=== PATIENT | female | born 1965 | race Caucasian/White ===

== ENCOUNTER 2019-01-05 18:17 | Inpatient (IN) | payer OTHER ==
--- NOTE | 2019-01-05 18:53 | ED ---
General Adult HPI - General Chief complaint: Extremity Injury, Lower Stated complaint: Ankle injury Time Seen by Provider: 01/05/19 18:32 Source: patient, family, RN notes reviewed Mode of arrival: wheelchair Limitations: no limitations - History of Present Illness Initial comments: Patient is a pleasant 53-year-old female presenting to the emergency department following right ankle injury. Patient states injury occurred around 11:30 last night. Patient tripped over her dog. Patient did see orthopedics today who did some manipulation to the ankle and did place splint. They did numb up the ankle prior to this procedure. Patient states discomfort is minimal at this time. Patient states she was told she would need a computed tomography scan and probable surgery tonight. Patient denies any other area of injury or concern. - Related Data Home Medications Medication Instructions Recorded Confirmed Fexofenadine HCl [Purvi Allergy] 180 mg PO DAILY 01/05/19 01/05/19 Ibuprofen [Advil] 400 mg PO Q8H 01/05/19 01/05/19 Allergies Allergy/AdvReac Type Severity Reaction Status Date / Time Fish Containing Products Allergy Itching Verified 01/05/19 18:51 [Fish] pistachio nut Allergy Swelling Verified 01/05/19 18:51 tetracycline AdvReac Nausea & Verified 01/05/19 18:51 Vomiting & Diarrhea Review of Systems ROS Statement: Those systems with pertinent positive or pertinent negative responses have been documented in the HPI. ROS Other: All systems not noted in ROS Statement are negative. Constitutional: Denies: fever Eyes: Denies: eye pain ENT: Denies: ear pain Respiratory: Denies: cough Cardiovascular: Denies: chest pain Endocrine: Denies: fatigue Gastrointestinal: Denies: abdominal pain Genitourinary: Denies: dysuria Musculoskeletal: Denies: back pain Skin: Denies: rash Neurological: Denies: weakness Past Medical History Past Medical History: No Reported History History of Any Multi-Drug Resistant Organisms: None Reported Past Surgical History: Section Past Psychological History: No Psychological Hx Reported Smoking Status: Current every day smoker Past Alcohol Use History: None Reported Past Drug Use History: None Reported General Exam Limitations: no limitations General appearance: alert, in no apparent distress Head exam: Present: atraumatic Eye exam: Present: normal appearance Neck exam: Present: normal inspection Respiratory exam: Present: normal lung sounds bilaterally Cardiovascular Exam: Present: regular rate, normal rhythm Extremities exam: Present: other (Right lower leg with OCL splint. Distally toes have sensation and movement intact. Cap refill less than 2 seconds.) Neurological exam: Present: alert Psychiatric exam: Present: normal affect, normal mood Skin exam: Present: normal color Course Vital Signs 01/05/19 18:20 Temperature 98.4 F Pulse Rate 78 Respiratory 18 Rate Blood Pressure 151/87 O2 Sat by Pulse 95 Oximetry - Reevaluation(s) Reevaluation #1: 01/05/19 18:52 Patient refuses pain medication at this time Medical Decision Making - Medical Decision Making Patient is currently being taken to the OR. Disposition Clinical Impression: Trimalleolar fracture of ankle, closed Disposition: ADMITTED IP TO THIS HOSP Is patient prescribed a controlled substance at d/c from ED?: No Referrals: Lakshmi Rodríguez MD [Primary Care Provider] - 1-2 days Decision Time: 20:02
--- NOTE | 2019-01-05 19:31 | P.HPOR ---
History of Present Illness H&P Date: 01/05/19 The patient is a very pleasant 53-year-old female with a medical history significant for smoking one half pack cigarettes a day who sustained an injury to her right ankle last night when she tripped over her puppy. She had significant pain and deformity in her ankle but decided not to go to the [facility] room. They wrapped her ankle and a towel and called our office this morning. She was seen in our office this afternoon and was found to have a fracture dislocation of the ankle. There is tenting of the skin over the medial aspect of the ankle with skin at risk. An intra-articular lidocaine block was performed followed by 2 attempts at closed reduction and splinting. Postreduction x-rays showed persistent subluxation of the ankle. She only had moderate swelling throughout the ankle and due to her history of cigarette smoking and skin at risk over the medial ankle I sent her to the emergency department for a computed tomography scan and definitive fixation this evening. Past Medical History Past Medical History: No Reported History History of Any Multi-Drug Resistant Organisms: None Reported Past Surgical History: Section Past Psychological History: No Psychological Hx Reported Smoking Status: Current every day smoker Past Alcohol Use History: None Reported Past Drug Use History: None Reported Medications and Allergies Home Medications Medication Instructions Recorded Confirmed Type Fexofenadine HCl [Purvi Allergy] 180 mg PO DAILY 01/05/19 01/05/19 History Ibuprofen [Advil] 400 mg PO Q8H 01/05/19 01/05/19 History Allergies Allergy/AdvReac Type Severity Reaction Status Date / Time Fish Containing Products Allergy Itching Verified 01/05/19 18:51 [Fish] pistachio nut Allergy Swelling Verified 01/05/19 18:51 tetracycline AdvReac Nausea & Verified 01/05/19 18:51 Vomiting & Diarrhea Physical Examination The patient is in no apparent distress and is alert and oriented. She is able to easily answer questions. Her head is normocephalic and atraumatic. She demonstrates nonlabored breathing with symmetric chest expansion. On examination of the right lower extremity there is a splint in place which was taken down. There is skin at risk with tenting over the medial aspect of the ankle. There otherwise no open wounds or fracture blisters. There is moderate swelling but the skin does not appear tense. Sensation is intact to light touch in the distribution of the superficial peroneal nerve, deep peroneal nerve, and tibial nerves. There is minimal pain with passive range of motion of the toes. The dorsalis pedis pulse is palpable. Results X-rays from our office show a trimalleolar ankle fracture dislocation Assessment and Plan (1) Trimalleolar fracture of ankle, closed Current Visit: Yes Status: Acute Code(s): S82.853A - DISPLACED TRIMALLEOLAR FRACTURE OF UNSP LOWER LEG, INIT SNOMED Code(s): 4914276 Plan: The patient had 2 attempts at closed reduction and splinting in the office. She had persistent subluxation of the ankle and skin at risk medially. Due to her cigarette smoking and skin at risk I recommended urgent operative fixation. The patient and her understood the emergency department an open wound. They were sent over to the emergency department for a computed tomography scan and then plans for definitive surgery later this evening. She is remain nothing by mouth. They're well aware of the potential risks and complications of surgery. They also understand that she is at a much higher risk of having a complication due to her cigarette smoking.
[2019-01-05] MEDS ORDERED: NALOXONE 0.4 MG/ML 1 ML VIAL IV PRN (20:02)
[2019-01-05] MEDS ORDERED: HYDROmorphone 1 MG/ML 1 ML SYRINGE IVP PRN (20:02)
[2019-01-05] MEDS ORDERED: HYDROmorphone 0.5 MG/0.5 ML SYRINGE IVP PRN ×3 (20:02→22:25)
[2019-01-05 20:08] LABS: Basophils % (A) 0 %; Eosinophils # (A) 0.7 k/uL (0-0.7); Eosinophils % (A) 5 %; HGB 14.3 gm/dL (11.4-16.0); Lymphocytes # (A) 2.8 k/uL (1.0-4.8); Lymphocytes % (A) 21 %; MCH 32.5 pg (25.0-35.0); MCHC 31.8 g/dL (31.0-37.0); MCV 102.2 fL (80.0-100.0); Macrocytosis Slight; Mean Platelet Volume 7.2; Monocytes # (A) 0.5 k/uL (0-1.0); Monocytes % (A) 3 %; Neutrophils # (A) 9.2 k/uL (1.3-7.7); Neutrophils % (A) 68 %; Platelet Count 273 k/uL (150-450); RBC 4.41 m/uL (3.80-5.40); RDW 12.6 % (11.5-15.5); WBC 13.5 k/uL (3.8-10.6)
[2019-01-05] MEDS ORDERED: SODIUM CHLORIDE 0.9% 1,000 ML IV SCH (20:15)
[2019-01-05 20:17] LABS: INR 0.9 (<1.2); Partial Thromboplastin Time 23.6 sec (22.0-30.0); Prothrombin Time 9.5 sec (9.0-12.0)
[2019-01-05] MEDS ORDERED: ROPIVACAINE 5 MG/ML 30 ML VIAL ONE (20:17)
[2019-01-05] MEDS ORDERED: SUCCINYLCHOLINE CHLORIDE 100 MG/5 ML SYR IV ONE (20:17)
[2019-01-05] MEDS ORDERED: fentaNYL (PF) 50 MCG/ML 2 ML AMP ONE (20:17)
[2019-01-05] MEDS ORDERED: LIDOCAINE 1% INJ 10MG/ML (20 ML MDV) ONE (20:17)
[2019-01-05] MEDS ORDERED: MIDAZOLAM 2 MG/2 ML VIAL ONE (20:17)
[2019-01-05] MEDS ORDERED: PROPOFOL 10 MG/ML 50 ML VIAL IV ONE (20:17)
[2019-01-05] MEDS ORDERED: PHENYLEPHRINE-0.9% NACL SYG 1 MG/10 ML SYRINGE ONE (20:17)
[2019-01-05] MEDS ORDERED: HYDROmorphone (PF) 1 MG/ML ONE (20:17)
[2019-01-05] MEDS ORDERED: GLYCOPYRROLATE 0.2 MG/ML 2 ML VIAL ONE (20:17)
[2019-01-05 20:18] LABS: ALT 34 U/L (9-52); AST 27 U/L (14-36); African American GFR (CKD) >90 (>60 ml/min/1.73 sqM); Albumin 4.8 g/dL (3.5-5.0); Alkaline Phosphatase 99 U/L (38-126); Anion Gap 12 mmol/L; Blood Urea Nitrogen 15 mg/dL (7-17); Calcium 9.6 mg/dL (8.4-10.2); Carbon Dioxide 26 mmol/L (22-30); Chloride 103 mmol/L (98-107); Glucose 105 mg/dL (74-99); Potassium 4.3 mmol/L (3.5-5.1); Sodium 141 mmol/L (137-145); Total Bilirubin 0.7 mg/dL (0.2-1.3); Total Protein 7.7 g/dL (6.3-8.2)
--- NOTE | 2019-01-05 20:20 | CT ---
CT scan of the right ankle. History fracture. Comparison none. TECHNIQUE: Multiple axial sections were obtained from the mid tibia to the bottom of the foot without contrast. FINDINGS: There is transverse fracture of the medial malleolus. There is 8 mm lateral displacement. There is 8 mm lateral displacement of the talus. There is oblique fracture of the distal fibula with separation of the fragments up to 5 mm. There is a comminuted 2 cm chip fracture of the posterior malleolus. The re is posterior displacement of the talus of 1 cm. The calcaneus is intact. The talus is intact. Subt alar joint is intact. There is a mild posterior dislocation of the talus.. IMPRESSION: There is a posterior trimalleolar comminuted fracture dislocation of the ankle. Displacement up to 1 cm. Small plantar calcaneal spur.
[2019-01-05] MEDS ORDERED: LACTATED RINGERS 1,000 ML IV ONE ×2 (20:28→21:55)
[2019-01-05] MEDS ORDERED: SODIUM CHLORIDE 0.9% 50 ML with ceFAZolin 2,000 MG IV ONE ×2 (20:50)
[2019-01-05] MEDS ORDERED: HYDROcodone/APAP 5-325MG 1 EACH TAB PO PRN ×2 (22:25)
[2019-01-05] MEDS ORDERED: hydrOXYzine PAMOATE 25 MG CAP PO PRN (22:25)
[2019-01-05] MEDS ORDERED: SENNOSIDES-DOCUSATE SODIUM 1 EACH TAB PO PRN (22:25)
--- NOTE | 2019-01-05 22:33 | P.OP ---
Date of Procedure: 01/05/19 Preoperative Diagnosis: 1. Right trimalleolar ankle fracture dislocation 2. Current every day cigarette smoker Postoperative Diagnosis: Same Procedure(s) Performed: 1. Open reduction and internal fixation of right lateral and medial malleolus fracture, nonoperative management posterior malleolus fracture 2. Manual application of joint stress for radiography by physician, right ankle 3. Application of short-leg splint by physician, right ankle Anesthesia: JOSE ALFREDO, regional Surgeon: Macario Pascal Garden Equipment Mechanic #1: Sandip Fair Estimated Blood Loss (ml): 15 IV fluids (ml): 1,200 Pathology: none sent Condition: stable Disposition: PACU Indications for Procedure: The patient is very pleasant 53-year-old female with a medical history significant for cigarette smoking who presented to my office today with a fractured and dislocated ankle. The patient injured her right ankle yesterday when walking her new puppy. She wrapped her leg in a towel and waited overnight before presenting to our office today. She was found to have skin at risk over the medial malleolus. 2 attempts were made in the office to reduce the ankle but there is persistent lateral subluxation of the talus. I recommended going to the operating room for formal open reduction internal fixation due to the skin at risk medially. There is only moderate swelling so I felt safe performing formal open reduction internal fixation. I discussed with the patient and her the potential risks and Occasions of surgery including but not limited to risk of anesthesia, superficial infection, deep infection, delayed wound healing, superficial wound necrosis, nonunion the fracture site, malunion of the fracture site, postoperative hardware failure, post rheumatic arthritis, DVT, PE, other medical complications, and inability to regain prein jury level of function, generalized a satisfactory surgical outcome, and possibly loss of life or limb. The patient and her voiced understanding of these potential complications and also acknowledged the risk for other less common complications. They also understand that she is a higher risk having a complication due to her cigarette smoking. Description of Procedure: The patient is identified in preoperative holding and the correct right ankle was marked my initials. I reviewed the consent form with the patient and her family. All their questions were answered. The patient was then brought back to the operating room by anesthesia. She was positioned on the OR table where a general anesthetic and preoperative antibiotics were given. A tourniquet was applied to the proximal aspect of the right leg. A bump was placed in the right buttock into a rotate the leg to neutral. A ramp was placed under the right leg elevating the leg. All bony prominences were well-padded. The right leg was then prepped and draped in standard sterile fashion. A timeout was then performed identifying the correct patient, operative extremity, and procedure. The patient's leg was elevated, exsanguinated with an Esmarch bandage, and the tourniquet was inflated to 250 mmHg. I began by outlining a straight lateral incision to the distal fibula. Skin incision with a scalpel and dissection was carried down carefully to the subcu tissues tissue with tenotomy scissors. The fascia over the peroneal muscles proximally and the periosteum over the fibula distally was sharply incised. The fracture was identified and carefully debrided. The reduction was performed and held with a uvsxy-yf-bqzxu reduction clamp. The spike of the distal fragment keyed in anatomically into the proximal shaft. The reduction was verified with fluoroscopy. An anterior to posterior 2.7 mm lag screw was placed across the fracture generating excellent compression. A precontoured distal fibular plate was placed along the lateral aspect of the fibula. Once its position was verified with fluoroscopy and nonlocking 3.5 mm screw was placed just proximal to the fracture bringing the plate down to bone. An additional 2 nonlocking 3.5 malleolar screws were placed proximal to the fracture securing the plate to bone. Attention was then turned distally. A nonlocking 3.5 mm screw was placed through of the distal cluster of holes to bring the plate down to bone. I then filled the remaining cluster of holes with locking 3.5 mm screws. The nonlocking 3.5 mm screw was exchanged for a locking screw. Attention was then turned to the medial malleolus. A longitudinal incision was made over the medial malleolus dissection was carried down to subcutaneous tissue. The fracture site was immediately identified and hematoma was debrided from the fracture site. The joint was irrigated. A 2.0 mm drill bit was used to drill unicortical perforation just proximal to the fracture. A seism-yw-wcpkh reduction clamp was then used with 1 emma in this drill hole the second emma on the anterior aspect of the medial malleolus fragment. The fracture fragment was gently teased into place and the clamp was tightened. Clinically the fracture appeared anatomically reduced. Fluoroscopy was used to verify reduction. Due to the size of the fragment was only able to accommodate a single 3.5 mm screw. A solid fully threaded 2.5 mm screw was placed generating excellent compression across the fracture fragment. As the screw was tightened a K wire was placed to prevent rotation of the fragment. Following full seating of the screw the reduction clamp and K wire were removed. Final fluoroscopic images were taken including a mortise view, manual external rotation stress x-ray, and lateral view. The fibula appeared to be out to length and the talus was anatomically reduced within the ankle mortise. On the lateral view there was no posterior subluxation of the talus. On the manual external rotation stress x-ray there is no widening of the medial clear space or incisura. I interpreted this as a stable syndesmosis not requiring syndesmotic fixation. The wound was then copiously irrigated and closed in layers. I verified that all instrument, sponge, and sharp counts were correct. A sterile dressing consisting of brown quarter inch stretchy Steri-Strips, parents with Adaptic, 4 x 4 were applied. The drapes were taken off and a well-padded bulky Ferreira splint was placed with the ankle in neutral. The patient was awoken from her anesthetic, transferred to a gurney, and brought to recovery having tolerated procedure well. [facility] PAC was required skilled leasing assistant for patient positioning, surgical exposure, placement of hardware, closure of wound, and application of splint. Plan: The patient is going to be admitted overnight for 2 doses of postoperative antibiotics and pain control. She can make strictly nonweightbearing on her right leg. Physical therapy for gait and crutch training. She can discharge home tomorrow when her pain is controlled and she passes physical therapy.
[2019-01-05] MEDS ORDERED: ROPIVACAINE 5 MG/ML 30 ML VIAL MISCELLANE ONE (22:36)
--- NOTE | 2019-01-05 23:13 | P.ANPRN ---
Procedure Note - Anesthesia - Nerve Block Performed Right Adductor Canal Single Time Out Performed: Yes Date of Procedure: 01/05/19 Procedure Start Time: 22:58 Procedure Stop Time: 23:05 Location of Patient Procedure: PACU Indication: Acute Post-Operative Pain, Requested by physician Specifically requested for management of pain by DrYani: Macario Pascal Sedation Type: Sedate with meaningful contact maintained Preparation: Sterile Prep Position: Supine Needle Types: Facet Needle Gauge: 20 Technique: Ultrasound Injectate: 0.5% Ropivacaine (see comment for volume) (15 ml) Blood Aspirated: No Pain Paresthesia on Injection Noted: No Resistance on Injection: Normal Events: Uneventful and Well Tolerated
--- NOTE | 2019-01-05 23:14 | P.ANPRN ---
Procedure Note - Anesthesia - Nerve Block Performed Right Popliteal Single Time Out Performed: Yes Date of Procedure: 01/05/19 Procedure Start Time: 22:36 Procedure Stop Time: 22:56 Location of Patient Procedure: PACU Indication: Acute Post-Operative Pain, Requested by physician Specifically requested for management of pain by DrYani: Macario Pascal Sedation Type: Sedate with meaningful contact maintained Preparation: Sterile Prep Position: Left Lateral Catheter: None Needle Types: Facet Needle Gauge: 20 Technique: Ultrasound Injectate: 0.5% Ropivacaine (see comment for volume) (15 ml) Blood Aspirated: No Pain Paresthesia on Injection Noted: No Resistance on Injection: Normal Events: Uneventful and Well Tolerated
[2019-01-05] MEDS: ceFAZolin IN SWFI 2 GM/20 ML SYRINGE IVP SCH (23:58)
--- NOTE | 2019-01-06 00:18 | XR ---
EXAMINATION TYPE: XR ankle limited RT, [place] guidance operating room DATE OF EXAM: 01/05/2019 COMPARISON: NONE HISTORY: 52 year-old female right ankle ORIF FINDINGS: 4 intraoperative views during bimalleolar ankle fixation. The posterior malleolus fracture described in the patient's history is obscured by the fibular fixation sideplate. FLUOROSCOPY Fluoroscopy time of 52 seconds was used during right ankle ORIF of trimalleolar fractures. 4 image/s document/s the procedure. IMPRESSION: Intraoperative fluoroscopy as above.
[2019-01-06] MEDS: ONDANSETRON 4 MG/2 ML VIAL IVP PRN ×2 (00:38→08:17)
[2019-01-06] MEDS: HYDROmorphone 1 MG/ML 1 ML SYRINGE IVP PRN ×6 (01:16→20:45)
[2019-01-06] MEDS: LACTATED RINGERS 1,000 ML IV SCH ×3 (03:09→21:41)
[2019-01-06 08:16] LABS: Basophils # (A) 0.1 k/uL (0-0.2); Basophils % (A) 1 %; Eosinophils # (A) 0.6 k/uL (0-0.7); Eosinophils % (A) 4 %; HCT 36.7 % (34.0-46.0); HGB 11.9 gm/dL (11.4-16.0); Lymphocytes # (A) 2.9 k/uL (1.0-4.8); Lymphocytes % (A) 21 %; MCH 33.2 pg (25.0-35.0); MCHC 32.4 g/dL (31.0-37.0); MCV 102.6 fL (80.0-100.0); Macrocytosis Slight; Mean Platelet Volume 7.7; Monocytes # (A) 0.5 k/uL (0-1.0); Monocytes % (A) 4 %; Neutrophils # (A) 9.5 k/uL (1.3-7.7); Neutrophils % (A) 69 %; Platelet Count 225 k/uL (150-450); RBC 3.58 m/uL (3.80-5.40); RDW 13.8 % (11.5-15.5); WBC 13.9 k/uL (3.8-10.6)
[2019-01-06] MEDS: ENOXAPARIN 40 MG/0.4 ML SYRINGE SQ SCH (08:19)
--- NOTE | 2019-01-06 08:43 | P.PN ---
Subjective Progress Note Date: 01/06/19 This patient is a 53-year-old female with a past medical history significant for cigarette smoking who presented to Dr. Pascal's office on 01/05/19 with a right trimalleolar ankle fracture dislocation. Two attempts were made to reduce and splint the ankle in the office, although there was persistent lateral subluxation of the talus. It was recommended to undergo a formal open reduction internal fixation due to skin at risk at the medial malleolus. The patient underwent an open reduction internal fixation right lateral and medial malleolus fracture, with nonoperative management of the posterior malleolus fracture on 01/05/[address] Pascal. Today is post-operative day #1. The patient states her pain is not well controlled currently on [place], she has been requiring IV diluadid for relief. She states she was nauseated last night, but is feeling better this morning. She has not yet been up with physical therapy. She has been keeping the right lower extremity elevated. She denies numbness or tingling of the right lower extremity. She denies chest pain, shortness of breath. Vital signs stable. Objective - Vital Signs Vital signs: Vital Signs Temp 98.7 F 01/06/19 07:32 Pulse 67 01/06/19 07:32 Resp 16 01/06/19 07:32 BP 102/65 01/06/19 07:32 Pulse Ox 93 L 01/06/19 07:32 Intake & Output 01/05/19 01/06/19 01/06/19 18:59 06:59 18:59 Intake Total 2400 Output Total 10 Balance 2390 Weight 84.368 kg Intake: IV 1700 Intake, IV Titration 600 Amount Lactated Ringers 1,000 ml 600 @ 100 mls/hr IV .Q10H ALOK Rx#:[id number] Oral 100 Output: Estimated Blood Loss 10 Other: # Voids 0 - Exam On examination, the patient is lying in bed in no apparent distress. The patient is alert and oriented 3. On inspection of the right lower extremity, there is a bulky Ferreira splint in place. The splint is clean, dry, and intact. The toes are warm and well perfused, with capillary refill less than 2 seconds. The patient is able to wiggle the toes without difficulty. There is no pain with passive range of motion of the toes. Sensation is intact to light touch of the toes. Neurovascular is intact of the right lower extremity. Left lower extremity compression cuff in place. The left calf is soft and nontender. - Labs CBC & Chem 7: 01/06/19 07:43 01/05/19 19:55 Labs: Abnormal Lab Results - Last 24 Hours (Table) 01/05/19 01/05/19 01/06/19 Range/Units 19:55 19:55 07:43 WBC 13.5 H 13.9 H (3.8-10.6) k/uL RBC 3.58 L (3.80-5.40) m/uL MCV 102.2 H 102.6 H (80.0-100.0) fL Neutrophils # 9.2 H 9.5 H (1.3-7.7) k/uL Glucose 105 H (74-99) mg/dL - Imaging and Cardiology CT scan right ankle 01/05/19: Trimalleolar comminuted fracture dislocation of the ankle. Assessment and Plan Assessment: Right trimalleolar ankle fracture dislocation status-post open reduction internal fixation lateral and medial malleolus fracture, with nonoperative management posterior malleolus fracture on 01/05/19. Post-operative day #1. Plan: - Strict nonweightbearing of the right lower extremity. Ice and elevate the right lower extremity to decrease pain and swelling. - Physical therapy for gait and balance training. - Continue pain management. [place] increased to 7.5/325mg [id number]. - Lovenox while she is inpatient for anticoagulation, aspirin on discharge. - 2 doses of postoperative antibiotics. - Anticipate discharge home in the next 24-48 hours.
[2019-01-06] MEDS: ceFAZolin IN SWFI 2 GM/20 ML SYRINGE IVP SCH (09:25)
[2019-01-06] MEDS ORDERED: ACETAMINOPHEN TAB 325 MG TAB PO PRN (20:27)
[2019-01-07] MEDS: HYDROmorphone 1 MG/ML 1 ML SYRINGE IVP PRN ×2 (00:10→06:30)
[2019-01-07] MEDS ORDERED: diphenhydrAMINE 50 MG/ML 1 ML VIAL IVP ONE (02:32)
[2019-01-07] MEDS ORDERED: diphenhydrAMINE 50 MG/ML 1 ML VIAL IVP PRN (02:51)
[2019-01-07] MEDS: LACTATED RINGERS 1,000 ML IV SCH (04:39)
[2019-01-07] MEDS: ENOXAPARIN 40 MG/0.4 ML SYRINGE SQ SCH (08:29)
[2019-01-07] MEDS: HYDROcodone/APAP 7.5-325MG 1 EACH TAB PO PRN ×4 (10:42→22:48)
--- NOTE | 2019-01-07 13:43 | P.PN ---
Subjective Progress Note Date: 01/07/19 This patient is a 53-year-old female with a past medical history significant for cigarette smoking who presented to Dr. Pascal's office on 01/05/19 with a right trimalleolar ankle fracture dislocation. Two attempts were made to reduce and splint the ankle in the office, although there was persistent lateral subluxation of the talus. It was recommended to undergo a formal open reduction internal fixation due to skin at risk at the medial malleolus. The patient underwent an open reduction internal fixation right lateral and medial malleolus fracture, with nonoperative management of the posterior malleolus fracture on 01/05/[address] Pascal. Today is post-operative day #2. The patient states her pain is well-controlled currently on the oral [place]. She states she has not required IV Dilaudid since late yesterday. She has been up with physical therapy and has been transferring with a walker with minimal issues. She states she has not been nauseated today, she has been able to tolerate her lunch well. She denies abdominal pain. She denies chest pain, shortness breath, nausea, vomiting, numbness or tingling down the right lower extremity. Vital signs stable. Objective - Vital Signs Vital signs: Vital Signs Temp 96.7 F L 01/07/19 07:41 Pulse 88 01/07/19 07:41 Resp 16 01/07/19 07:41 BP 116/76 01/07/19 07:41 Pulse Ox 94 L 01/07/19 07:41 Intake & Output 01/06/19 01/07/19 01/07/19 18:59 06:59 18:59 Intake Total 800 370 50 Output Total 1400 Balance 800 -1030 50 Intake: IV 800 100 Lactated Ringers 1,000 ml 800 100 @ 100 mls/hr IV .Q10H ALOK Rx#:[id number] Oral 270 50 Output: Urine 1400 Other: # Voids 2 3 - Exam On examination, the patient is lying in the chair in no apparent distress. The patient is alert and oriented 3. On inspection of the right lower extremity, there is a bulky Ferreira splint in place. The splint is clean, dry, and intact. The toes are warm and well perfused, with capillary refill less than 2 seconds. The patient is able to wiggle the toes without difficulty. There is no pain with passive range of motion of the toes. Sensation is intact to light touch of the toes. Neurovascular is intact of the right lower extremity. Left lower extremity compression cuff in place. The left calf is soft and nontender. - Labs CBC & Chem 7: 01/06/19 07:43 01/05/19 19:55 Assessment and Plan Assessment: Right trimalleolar ankle fracture dislocation status-post open reduction internal fixation lateral and medial malleolus fracture, with nonoperative management posterior malleolus fracture on 01/05/19. Post-operative day #2. Plan: - Strict nonweightbearing of the right lower extremity. Ice and elevate the right lower extremity to decrease pain and swelling. - Physical therapy for gait and balance training. - [place] increased to 7.5/325mg [id number] for pain control. Decrease use of IV Dilaudid as tolerated. - Lovenox while she is inpatient for anticoagulation, aspirin on discharge. - 2 doses of postoperative antibiotics. - Anticipate discharge home tomorrow.
[2019-01-08] MEDS: HYDROcodone/APAP 7.5-325MG 1 EACH TAB PO PRN ×3 (03:07→12:02)
[2019-01-08] MEDS: ENOXAPARIN 40 MG/0.4 ML SYRINGE SQ SCH (07:39)
[2019-01-08 07:42] VITALS: BP 135/90; PULSE 85; RESP 16; TEMP 99.2
--- NOTE | 2019-01-08 09:00 | P.DS ---
Providers Date of admission: 01/05/19 20:02 Expected date of discharge: 01/08/19 Attending physician: Macario Pascal Primary care physician: [facility] Course: This patient is a 53-year-old female with a current every day smoker who sustained a fall resulting in a right trimalleolar ankle fracture dislocation. Patient was initially seen in the office by Dr. Pascal on 01/05/19, and 2 attempts at closed reduction and splinting were done in the office, although post-reduction x-rays showed persistent subluxation of the ankle. She had tenting of skin of the medial aspect of the ankle with skin at risk, therefore she was sent to [facility] Emergency Department for a computed tomography scan of the right ankle and definitive fixation of the ankle. Patient underwent an open reduction and internal fixation of the right ankle on 01/05/[address] Pascal. The procedure is performed without complication or sequelae. The patient is doing well postoperatively. Vital signs are stable on postop day #3. The patient is examined bedside this morning. The patient states the pain is very well-controlled this morning. She has not required use of IV diluadid. She has been transferring to the bedside commode with the use of a walker with minimal assistance. She has not yet had a bowel movement postoperatively, although she denies any abdominal pain. She is passing elective medical cast. She denies numbness or tingling in the right lower extremity. She denies chest pain, shortness breath, nausea, vomiting, fever, chills. She has no new complaints this morning. Vital signs stable. On examination, the patient is sitting up in bed in no acute distress. Patient is alert and orientated x3. On inspection of the right lower extremity, there is a bulky Ferreira splint in place. Splint is clean, dry, intact. Patient is able to wiggle right toes without issue. The toes are warm and well-perfused with brisk capillary refill. Sensation is intact to light touch of the dorsal and plantar foot, as well as first dorsal webspace. The left calf is soft and non-tender to palpation. The patient is discharged home today in good condition. Please see discharge orders. Please refer to the med rec for accurate list of medications. Patient Condition at Discharge: Fair Plan - Discharge Summary New Discharge Prescriptions: New Aspirin 325 mg PO DAILY #14 tab Docusate [Colace] 100 mg PO BID #60 capsule HYDROcodone/APAP 7.5-325MG [Vista 7.5-325] 1 tab PO Q4-6H PRN 7 Days #40 tab PRN Reason: Pain No Action Fexofenadine HCl [Purvi Allergy] 180 mg PO DAILY Ibuprofen [Advil] 400 mg PO Q8H Discharge Medication List Fexofenadine HCl [Purvi Allergy] 180 mg PO DAILY 01/05/19 [History] Ibuprofen [Advil] 400 mg PO Q8H 01/05/19 [History] Aspirin 325 mg PO DAILY #14 tab 01/08/19 [Rx] Docusate [Colace] 100 mg PO BID #60 capsule 01/08/19 [Rx] HYDROcodone/APAP 7.5-325MG [Vista 7.5-325] 1 tab PO Q4-6H PRN 7 Days #40 tab 01/08/19 [Rx] Follow up Appointment(s)/Referral(s): Lakshmi Rodríguez MD [Primary Care Provider] - 1-2 days Marisol Chen [NON-STAFF] - As Needed (walker) Macario Pascal MD [Medical Doctor] - 2 Weeks Activity/Diet/Wound Care/Special Instructions: -Strict non-weight bearing on your operative leg. Do not remove your splint; Keep splint clean, dry, and intact -Use crutches, knee scooter, or a walker to ambulate after surgery. -Elevate and ice operative leg to help reduce swelling and control pain. -Take pain medications as prescribed. Take Colace as a stool softener. Take aspirin as prescribed for blood clot prevention. -Follow-up appointment with Dr. Pascal in the office in 2 weeks. -Call the office with any questions or concerns, Discharge Disposition: HOME SELF-CARE
== END 2019-01-08 13:40 | disposition home or self-care (01) | DRG 494 ==
LOC: EC 18:17 → 4SSUR 20:02
PROVIDERS: ADMIT Orthopaedic Surgery; ATTEND Orthopaedic Surgery
PROC: 0QSG04Z Reposition Right Tibia with Internal Fixation Device, Open Approach (ICD-10-PCS; 2019-01-05)
PROC: 0QSJ04Z Reposition Right Fibula with Internal Fixation Device, Open Approach (ICD-10-PCS; principal; 2019-01-05 18:46)
DX: S82.851A Displaced trimalleolar fracture of right lower leg, initial encounter for closed fracture (principal); F17.210 Nicotine dependence, cigarettes, uncomplicated; R11.0 Nausea; K21.9 Gastro-esophageal reflux disease without esophagitis; Z88.1 Allergy status to other antibiotic agents; Z91.018 Allergy to other foods; W01.0XXA Fall on same level from slipping, tripping and stumbling without subsequent striking against object, initial encounter; Y92.9 Unspecified place or not applicable
CPT/HCPCS: 36415; 64445; 80053; 82306; 85025; 85610; 85730; 93005; 99285